=== PATIENT | female | born 1955 | race Caucasian/White ===

== ENCOUNTER 2021-05-17 09:49 | Emergency (ER) | payer MEDICARE ==
[2021-05-17 11:16] VITALS: BP 161/54; PULSE 50; O2SAT 99
--- NOTE | 2021-05-17 11:18 | ERPHSYRPT ---
- History of Present Illness Time Seen by Provider: 05/17/21 11:13 Source: patient, family Exam Limitations: no limitations Physician History: pt has 3 day hx of a pimple like lesion on right upper lip with swelling and redness - no vesicles , mild pain . No fluctuance to drain on exam and dental /jaw floor of mouth , and neck all nontender. swallowing OK in ER. No rash , no new meds . no systemic symptom or itching or shortness of breath. Timing/Duration: day(s) Severity: mild Location: face Possible Causes: no cause identified Associated Symptoms: denies symptoms, No difficulty breathing, No numbness, No paresthesia, No rash, No sore throat, No tingling Home Medications: Aspirin EC 81 mg [Ecotrin 81 mg] 81 mg PO DAILY 05/17/21 [History] Buspirone HCl [Buspar] 10 mg PO DAILY 05/17/21 [History] Famotidine 20 mg [Pepcid 20 MG] 20 mg PO BID 05/17/21 [History] Gabapentin [Neurontin] 600 mg PO DAILY 05/17/21 [History] - Review of Systems Constitutional: No Fever, No Chills Eyes: No Symptoms Ears, Nose, & Throat: No Symptoms Respiratory: No Cough, No Dyspnea Cardiac: No Chest Pain, No Edema, No Syncope Abdominal/Gastrointestinal: No Abdominal Pain, No Nausea, No Vomiting, No Diarrhea Genitourinary Symptoms: No Dysuria Musculoskeletal: No Back Pain, No Neck Pain Skin: Other (lesion right upper lip ), No Rash Neurological: No Dizziness, No Focal Weakness, No Sensory Changes Psychological: No Symptoms Endocrine: No Symptoms All Other Systems: Reviewed and Negative - Past Medical History Pertinent Past Medical History: No - Physical Exam General Appearance: no apparent distress, alert Eye Exam: PERRL/EOMI, eyes nml inspection Ears, Nose, Throat Exam: normal ENT inspection, pharynx normal, moist mucous membranes, other (tender swelling with erythema right upper lip and punctate pimple site ), No pharyngeal erythema Neck Exam: normal inspection, non-tender, supple, full range of motion Respiratory Exam: normal breath sounds, lungs clear, No respiratory distress Cardiovascular Exam: regular rate/rhythm, normal heart sounds Gastrointestinal/Abdomen Exam: soft, mass, No tenderness Back Exam: normal inspection, normal range of motion, No CVA tenderness, No vertebral tenderness Extremity Exam: normal inspection, normal range of motion Neurologic Exam: alert, oriented x 3, cooperative, normal mood/affect, sensation nml, No motor deficits Skin Exam: normal color, warm, dry - Course Nursing assessment & vital signs reviewed: Yes - Progress Progress: improved, re-examined Counseled pt/family regarding: diagnosis, need for follow-up - Departure Departure Disposition: Home Clinical Impression: right upper lip infection Condition: Good Critical Care Time: No Instructions: Methicillin-Resistant Staphylococcus aureus (MRSA), Cellulitis (Skin Infection), Adult (DC) Additional Instructions: you appear to have a skin infection of the upper lip, but this needs follow-up with your Dr to determine exact treatment and course and may need further testing. we are giving some treatment for MRSA , although this may not be present and has not yet been confirmed but can appear this way early. return meantime if not improving or any other concerns, increased swelling, trouble swallowing or other. Prescriptions: Amox Tr/Potass Clav. 875 mg [Augmentin 875-125 Tablet] 875 mg PO BID #20 tablet Smz/Tmp Ds Tablet [Bactrim Ds Tablet] 1 tab PO Q12H #20 tablet
[2021-05-17] MEDS ORDERED: Augmentin 875-125 Tablet PO ONE (11:25)
[2021-05-17] MEDS ORDERED: BACTRIM DS TABLET PO STA (11:25)
[2021-05-17] MEDS ORDERED: Augmentin 875-125 Tablet ONE (11:32)
[2021-05-17] MEDS ORDERED: BACTRIM DS TABLET PO ONE (11:32)
== END 2021-05-17 11:37 | disposition home or self-care (01) ==
LOC: ED 09:49
DX: L08.9 Local infection of the skin and subcutaneous tissue, unspecified (principal)
CPT/HCPCS: 99283; A9270-GY